=== PATIENT | male | born 1985 | race African-American/Black ===

== ENCOUNTER → 2018-08-31 | Outpatient (CLI) | payer OTHER ==
[~2018-08-31] MED LIST: MOBIC 7.5MG7.5 MG; NORCO 325 MG-51 TAB PO
== END ==
LOC: MHCPAIN 09:22
DX: G89.29 Other chronic pain (principal); M47.817 Spondylosis without myelopathy or radiculopathy, lumbosacral region; M54.16 Radiculopathy, lumbar region; M53.3 Sacrococcygeal disorders, not elsewhere classified
CPT/HCPCS: G0463

== ENCOUNTER → 2018-09-17 | Outpatient (CLI) | payer OTHER | LOC: MHCPAIN 08:17 | DX: M47.817 Spondylosis without myelopathy or radiculopathy, lumbosacral region (principal); M54.16 Radiculopathy, lumbar region | CPT/HCPCS: J1100; Q9967 ==